=== PATIENT | male | born 1950 | race Caucasian/White ===

== ENCOUNTER 2019-07-23 08:53 | Outpatient (CLI) | payer MEDICARE, SELFPAY ==
--- NOTE | 2019-07-23 10:20 | ONCRAD EPV_ITS ---
Radiation Oncology Established Patient Visit Patient: Dante MR#: [id number] : 1950> Age: 68> Sex: Male> Dictated by: Dr. Malachi Mendoza Date of Service: 07/23/2019 Referring Physician(s) : Dr. Dallin Oreilly Diagnosis: C61 - Malignant neoplasm of prostate, Diagnosed 07/03/2016 (Active) Stage X, T2c, N0, M0 Radiotherapy to Date: Course: C1 Treatment Site: PELVIS PTV45 Ref. ID: PELVIS PTV 45 Energy: 6X Dose/Fx (cGy): 180 #Fx: 25 / 25 Dose Correction (cGy): 0 Total Dose (cGy): 4,500 Start Date: 10/15/2016 End Date: 11/23/2016 Elapsed Days: 39 Course: C1 Treatment Site: PELVIS PTV54 Ref. ID: PELVIS [id number] Energy: 6X Dose/Fx (cGy): 180 #Fx: 5 / 5 Dose Correction (cGy): 0 Total Dose (cGy): 900 Start Date: 11/24/2016 End Date: 11/29/2016 Elapsed Days: 5 Course: C1 Treatment Site: PELVIS [id number] Ref. ID: PELVIS [id number] Energy: 6X Dose/Fx (cGy): 200 #Fx: 12 / 12 Dose Correction (cGy): 0 Total Dose (cGy): 2,400 Start Date: 11/30/2016 End Date: 12/18/2016 Elapsed Days: 18 Chief Complaint / History of Present Illness: The patient is a 67 year old gentleman diagnosed with T2c, N0, M0 adenocarcinoma of the prostate [place] score 4+3, PSA 12.6ng/ml, intermediate risk disease s/p radiotherapy in combination with ADT. The patient comes in for a followup. He is doing well overall. He has completed ADT more than 6 months ago. He notes mild fatigue and nocturia x 1-3 but denies hot flash, dysuria, urgency, frequency, incontinence, weak stream, nocturia, hematuria, diarrhea, rectal irritation or bleeding. His recent PSA was < 0.04 ng/ ml on 06/11/2018, in 08/2018 and on 03/19/2019. I instructed patient to discontinue Megace since he is not having hot flash anymore. Current Medications: Aspirin Adult Low Dose, cardura, ipratropium-Albuterol, potassium, proventil HFA, singulair. Allergies: Codeine Sulfate. Current Complaints / Review of Systems: Constitutional - Complains of mild fatigue. Denies lack of appetite, fever and night sweats. Eyes - Denies blurred vision. ENMT - Denies dysphagia, ear pain, mouth dryness, stomatitis and altered taste. Neck - Denies neck pain. Integumentary - Denies rash. Cardiovascular - Denies arrhythmias and chest pain. Respiratory - Complains of a mild cough that happens occasionally. Complains of chronic dyspnea. Complains of wheezing. Gastrointestinal - Complains of heartburn / dyspepsia. Denies abdominal pain, constipation, diarrhea, melena / GI bleeding, nausea and vomiting. Genitourinary (M) - Complains of nocturia gets up about 2 to 3 times per night. Denies dysuria, frequency, incontinence and urgency. Musculoskeletal - Denies bone pain, joint pain and muscle weakness. Neurologic - Denies dizziness, abnormal gait and headaches. Endocrine - Denies diabetes and thyroid disease. Hematologic/Lymphatic - Denies tender or enlarged lymph nodes.. Vital Signs: Performed on 07/23/2019 9:24 AM BMI - 21.116 kg/m2, Height - 71.00 in, Weight - 151.4 lbs, Temperature - 98.1 f, Pulse - 79, Respiration - 20, O2 Sat - 95 % (low), Pain - 0 and BP - 114/ 70 mm(hg). Physical Exam: General: Alert and oriented x 3. No acute distress. HEENT: Normocephalic, atraumatic. Extraocular Movements Intact: Pupils Equal, Round, Reactive to Light and Accommodation: Sclerae anicteric. Oral cavity is clear without lesions, masses or ulcers. NECK: Supple without supraclavicular or jugular lymphadenopathy. LUNGS: Clear to auscultation bilaterally without rales, rhonchi or wheeze. HEART: Regular rate and rhythm, normal S1 and S2 without murmur, gallop or rub. MUSCULOSKELETAL: No tenderness or percussion pain over the axial skeleton, scapulae or pelvis. ABDOMEN: Soft, nontender, nondistended without masses or organomegaly. Bowel sounds are present. EXTREMITIES: No peripheral edema is identified. Limited motor and sensory examination are grossly intact and symmetric bilaterally. NEUROLOGIC: Cranial nerves II ???XII are grossly intact. Normal sensation, strength 5/5 in all extremities, normal gait, no ataxia. Performance Status: 0 - Fully active, able to carry on all predisease activities without restrictions. (ECOG) Lab: PSA < 0.04 ng/ml on 03/19/2019 Pathology: adenocarcinoma of prostate Impression/plan: There is no clinical evidence of recurrent prostate cancer and and no evidence of late radiation toxicities. The patient will continue to follow-up with Dr. Oreilly and recheck PSA regularly. He will follow up with me in 6 months. He was instructed to contact us earlier if he has any questions or experiences any issues such as persistent rectal bleeding/irritation. Signed by: 07/23/2019 10:19:48 AM <<Signature on File>> CPT Code: CPT Code: Signed By: Dr. Malachi Mendoza, 07/23/2019 10:19:49 AM <<Signature on File>>
== END 2019-07-23 08:54 | disposition home or self-care (01) ==
LOC: ONCMED 08:53
PROVIDERS: Family Provider Physician Assistant; Visit Provider Radiology Radiation Oncology
DX: Z08 Encounter for follow-up examination after completed treatment for malignant neoplasm (principal); Z85.46 Personal history of malignant neoplasm of prostate; R35.1 Nocturia; Z79.82 Long term (current) use of aspirin; Z92.3 Personal history of irradiation; Z92.23 Personal history of estrogen therapy
CPT/HCPCS: 99213

== ENCOUNTER → 2019-08-20 14:48 | Outpatient (BNVA) | payer MEDICARE, SELFPAY | PROVIDERS: Family Provider Physician Assistant; Visit Provider Nurse Practitioner Family | DX: R05 Cough (principal); J40 Bronchitis, not specified as acute or chronic | CPT/HCPCS: 87804 ==

== ENCOUNTER → 2019-09-17 08:39 | Outpatient (BNVA) | payer MEDICARE, SELFPAY | PROVIDERS: Family Provider Physician Assistant; Visit Provider Urology | DX: R97.20 Elevated prostate specific antigen [PSA] (principal); E29.1 Testicular hypofunction; C61 Malignant neoplasm of prostate | CPT/HCPCS: 81001 ==

== ENCOUNTER 2019-12-24 08:59 | Outpatient (CLI) | payer MEDICARE, SELFPAY ==
--- NOTE | 2019-12-25 09:55 | ONCRAD EPV_ITS ---
Radiation Oncology Established Patient Visit Patient: Dante MR#: [id number] : 1950 Age: 69 Sex: Male Dictated by: Dr. Gage Fregoso Date of Service: 12/24/2019 Referring Physician(s) : Dr. Dallin Oreilly Diagnosis: C61 - Malignant neoplasm of prostate, Diagnosed 07/03/2016 (Active) Stage X, T2c, N0, M0 Radiotherapy to Date: Course: C1, Treatment Site: PELVIS PTV45, Ref. ID: PELVIS PTV 45, Energy: 6X, Dose/Fx (cGy): 180, #Fx: 25 / 25, Dose Correction (cGy): 0, Total Dose (cGy): 4,500, Start Date: 10/15/2016, End Date: 11/23/2016, Elapsed Days: 39 Treatment Site: PELVIS PTV54, Ref. ID: PELVIS [id number], Energy: 6X, Dose/Fx (cGy): 180, #Fx: 5 / 5, Dose Correction (cGy): 0, Total Dose (cGy): 900, Start Date: 11/24/2016, End Date: 11/29/2016, Elapsed Days: 5 Boost Site: PELVIS PTV78, Ref. ID: [id number] [id number], Energy: 6X, Dose/Fx (cGy): 200, #Fx: / , Dose Correction (cGy): 0, Total Dose (cGy): 2,400, Start Date: 11/30/2016, End Date: 12/18/2016, Elapsed Days: 18 Chief Complaint / History of Present Illness: The patient is a 69 year old male with large volume, unfavorable intermediate risk prostate cancer, T2c N0M0, GG 4+3, PreTx PSA 12.6 ng/mL, 05/04 cores positive, PreTx AUA score 10, & + erectile dysfunction prior to radiation therapy. He was treated with 6 months of ADT (completed 2016) and 78 Gy as described above (completed 12/18/2016). He is seen today in follow up and his PSA is <0.04 ng/mL (09/17/2019). He is seeing his Urologist, Dr Oreilly, every 6 months, and with Dr Oreilly he receives biochemical surveillance every six months along with a digital rectal exam. On today???s visit, the patient reports zero nocturia after reducing his coffee consumption from 3 ???pots??? of coffee to 1.5 pots of coffee per day. He also reports no bloody stools, no diarrhea, and no dysuria. He reports no erectile function and he is not able to tolerate phosphodiesterase type 5 inhibition due to abnormal blood pressure effects and tachycardia. He does however report the recurrence of hot flashes. While he was undergoing treatment with ADT, his hot flashes were well managed with low dose megace (20 mg/day PO). Due to the recurrence of hot flashes, which he now describes as occurring 2-12 times per day, is affecting his quality of life. He requested a refill of this prescription which was initially provided by his treating radiation oncologist. Current Medications: Aspirin Adult Low Dose, cardura, ipratropium-Albuterol, potassium, proventil HFA, singulair. Allergies: Codeine Sulfate. Current Complaints / Review of Systems: Constitutional - Complains of mild fatigue. Denies lack of appetite, fever, night sweats but having hot flashes that has started back up after 6 months of not having them. and change in weight. Eyes - Denies blurred vision. Has no vision in the right eye. ENMT - Denies dysphagia, ear pain, mouth dryness, stomatitis and altered taste. Neck - Denies neck pain. Integumentary - Denies rash. Cardiovascular - Denies arrhythmias, chest pain and edema. Respiratory - Complains of chronic dyspnea associated with rest or normal activity. Denies cough and wheezing. Gastrointestinal - Denies abdominal pain, constipation, diarrhea, heartburn / dyspepsia, hemorrhoids, melena / GI bleeding, nausea and vomiting. Genitourinary (M) - Complains of urgency occasionally. Denies dysuria, frequency and nocturia. Musculoskeletal - Complains of generalized muscle weakness. Denies bone pain and joint pain. Neurologic - Complains of intermittent dizziness that occurs upon sitting to standing. Denies abnormal gait and headaches. Endocrine - Denies diabetes and thyroid disease. Hematologic/Lymphatic - Denies tender or enlarged lymph nodes.. Vital Signs: Performed on 12/24/2019 9:35 AM BMI - 20.53 kg/m2, Height - 71.00 in, Weight - 147.2 lbs, Temperature - 97.4 f, Pulse - 69, Respiration - 181, O2 Sat - 96 %, Pain - 0 and BP - 102/ 59 mm(hg)(/low). Physical Exam: General: Alert and oriented x 3. No acute distress. HEENT: Normocephalic, atraumatic. Extraocular Movements Intact: Pupils Equal, Round, Reactive to Light and Accommodation: Sclerae anicteric. NECK: Supple without supraclavicular or jugular lymphadenopathy. LUNGS: Clear to auscultation bilaterally without rales, rhonchi or wheeze. HEART: Regular rate and rhythm, normal S1 and S2 without murmur, gallop or rub. EXTREMITIES: No peripheral edema is identified. Limited motor and sensory examination are grossly intact and symmetric bilaterally. NEUROLOGIC: Cranial nerves II ???XII are grossly intact. Performance Status: 1 - No physically strenuous activity, but ambulatory and able to carry out light or sedentary work (e.g. office work, light house work). (ECOG) Lab: None pending. Pathology: Primary, c61 - malignant neoplasm of prostate, Diagnosed 07/03/2016 (active) stage x, t2c, n0, m0. Imaging: See HPI Impression: The patient is a 69 year old male with large volume, unfavorable intermediate risk prostate cancer, T2c N0M0, GG 4+3, PreTx PSA 12.6 ng/mL, who is status post 6 months of ADT (completed 2016) and definitive radiotherapy to 78 Gy (completed 12/18/2016). He has no current evidence of biochemical recurrence, his most recent PSA was <0.04 ng/mL (08/2019), and he has no current significant side effects from treatment. With regard to his hot flashes of uncertain etiology, a Megace prescription was refilled with verbal instructions given to the patient to only take 20 mg of Megace per day and not 20 mg BID. I discussed this with an in-house medical oncologist, Dr Penn, who thought that the prescribed dose was very safe to administer intermediate. He was instructed to continue Q6 months follow up with his Urologist, Dr Oreilly, along with PSA surveillance and continue to ask Dr Oreilly to copy us on notes and lab data. He was instructed to follow up with us in one year, or sooner if new symptoms develop. The patient was advised that the safe amount of coffee to drink per day is 4 cups/day. Consuming 1.5 ???pots??? of coffee per day is considered unsafe and it is a known diuretic. Perhaps this contributes to his dizziness when standing. The patient shared that he would not change his caffeine consumption despite medical advice to the contrary. CC: Dr Oreilly Signed by: 12/25/2019 9:53:23 AM <<Signature on File>> Time spent with patient: CPT Code: CPT Code:
== END 2019-12-24 09:00 | disposition home or self-care (01) ==
LOC: ONCMED 09:04
PROVIDERS: Visit Provider Radiology Radiation Oncology
DX: C61 Malignant neoplasm of prostate (principal); F41.9 Anxiety disorder, unspecified; J44.9 Chronic obstructive pulmonary disease, unspecified; Z79.899 Other long term (current) drug therapy; Z79.818 Long term (current) use of other agents affecting estrogen receptors and estrogen levels
CPT/HCPCS: 99213

== ENCOUNTER → 2020-09-28 09:10 | Outpatient (BNVA) | payer MEDICARE, SELFPAY | PROVIDERS: Visit Provider Urology | DX: E29.1 Testicular hypofunction (principal); N39.9 Disorder of urinary system, unspecified; C61 Malignant neoplasm of prostate | CPT/HCPCS: 81003; 84403; G0103 ==

== ENCOUNTER → 2021-09-28 09:17 | Outpatient (BNVA) | payer MEDICARE, SELFPAY | PROVIDERS: Visit Provider Urology | DX: C61 Malignant neoplasm of prostate (principal); R79.89 Other specified abnormal findings of blood chemistry; R97.20 Elevated prostate specific antigen [PSA]; E29.1 Testicular hypofunction | CPT/HCPCS: 81003; 84153; 84403 ==

== ENCOUNTER 2022-09-20 11:49 | Outpatient (CLI) | payer MEDICARE, SELFPAY ==
[2022-09-20 13:28] LABS: PSA Screen - Urology 1.69 ng/mL (0-4)
[2022-09-20 13:29] LABS: Testosterone Total - Urology 197 ng/mL (300-1000)
== END 2022-09-20 11:50 | disposition home or self-care (01) ==
LOC: LAB 11:57
PROVIDERS: PCP Urology; Visit Provider Urology
DX: Z12.5 Encounter for screening for malignant neoplasm of prostate (principal); R79.89 Other specified abnormal findings of blood chemistry
CPT/HCPCS: 36415; 84403; G0103

== ENCOUNTER → 2022-09-27 09:12 | Outpatient (BNVA) | payer MEDICARE, SELFPAY | PROVIDERS: PCP Urology; Visit Provider Urology | DX: C61 Malignant neoplasm of prostate (principal); Z12.5 Encounter for screening for malignant neoplasm of prostate; R79.89 Other specified abnormal findings of blood chemistry | CPT/HCPCS: 81003; 99213 ==

== ENCOUNTER → 2022-11-21 09:12 | Outpatient (BNVA) | payer MEDICARE, SELFPAY | PROVIDERS: PCP Urology; Visit Provider Urology | DX: R97.20 Elevated prostate specific antigen [PSA] (principal) | CPT/HCPCS: 84153 ==

== ENCOUNTER → 2022-11-28 13:01 | Outpatient (BNVA) | payer MEDICARE, SELFPAY | PROVIDERS: PCP Urology; Visit Provider Urology | DX: C61 Malignant neoplasm of prostate (principal); R97.20 Elevated prostate specific antigen [PSA]; E29.1 Testicular hypofunction | CPT/HCPCS: 81003; 99213 ==

== ENCOUNTER 2022-12-12 14:32 | Oncology outpatient (recurring) (ONCR) | payer MEDICARE, SELFPAY ==
[2022-12-12 16:23] LABS: Basophils % 0.6 %; Eosinophils # 0.1 10^3/uL (0.0-0.8); Eosinophils % 2.5 %; Hematocrit 39.1 % (42.0-52.0); Hemoglobin 12.6 g/dL (11.7-16.6); Lymphocytes # 0.8 10^3/uL (0.8-4.8); Mean Corpuscular HGB Conc 32.2 g/dL (30.0-36.0); Mean Corpuscular Hemoglobin 30.1 pg (28.0-34.0); Mean Corpuscular Volume 93.3 fl (80-94); Mean Platelet Volume 10.3 fL (7.4-10.4); Monocytes # 0.2 10^3/uL (0.2-0.9); Monocytes % 6.1 %; Neutrophils # 2.44 10^3/uL (1.8-7.7); Neutrophils % 67.5 %; Nucleated Red Blood Cells % 0 %; Platelet Count 165 10^3/cmm (130-400); Red Blood Count 4.19 10^6/uL (4.1-5.3); Red Cell Distribution Width 13.6 % (12.1-15.1); White Blood Count 3.6 10^3/uL (4.0-10.0)
[2022-12-12 16:50] LABS: Alanine Aminotransferase 18 U/L (0-41); Albumin Level 3.9 g/dL (3.5-5.2); Alkaline Phosphatase 72 U/L (40-130); Anion Gap 13.6 (5-19); Aspartate Amino Transferase 19 U/L (0-40); Blood Urea Nitrogen 25 mg/dL (8-23); Carbon Dioxide 24 mmol/L (22-29); Chloride 105 mmol/L (98-107); Globulin 2.4 g/dL (1.3-4.6); Glucose 90 mg/dL (65-115); Osmolality Calculated 290 mOsm/kg (285-295); Potassium 4.6 mmol/L (3.5-5.1); Sodium 138 mmol/L (136-145); Testosterone Total 182.2 ng/dL (193-740); Total Bilirubin 0.2 mg/dL (0.15-1.2); Total Protein 6.3 g/dL (6.6-8.7)
== END 2022-12-21 23:59 | disposition home or self-care (01) ==
PROVIDERS: PCP Nurse Practitioner Family; Visit Provider Internal Medicine Hematology & Oncology
DX: C61 Malignant neoplasm of prostate (principal)
CPT/HCPCS: 36415; 80053; 84153; 84403; 85025; 99204

== ENCOUNTER 2023-01-14 08:30 | Oncology outpatient (recurring) (ONCR) | payer MEDICARE, SELFPAY ==
[2023-01-10 12:10] VITALS: BP 88/50; PULSE 76; RESP 18; TEMP 36.3; O2SAT 96
[2023-01-10 13:44] LABS: Alanine Aminotransferase 15 U/L (0-41); Albumin Level 3.8 g/dL (3.5-5.2); Alkaline Phosphatase 65 U/L (40-130); Anion Gap 15.4 (5-19); Aspartate Amino Transferase 19 U/L (0-40); Blood Urea Nitrogen 18 mg/dL (8-23); Calcium 9.1 mg/dL (8.5-10.5); Carbon Dioxide 24 mmol/L (22-29); Chloride 105 mmol/L (98-107); Globulin 2.2 g/dL (1.3-4.6); Glucose 81 mg/dL (65-115); Osmolality Calculated 291 mOsm/kg (285-295); Potassium 4.4 mmol/L (3.5-5.1); Sodium 140 mmol/L (136-145); Testosterone Total 137.2 ng/dL (193-740); Total Bilirubin 0.3 mg/dL (0.15-1.2)
== END 2023-01-21 23:59 | disposition home or self-care (01) ==
PROVIDERS: PCP Nurse Practitioner Family; Visit Provider Internal Medicine Hematology & Oncology
DX: Z53.9 Procedure and treatment not carried out, unspecified reason (principal)
CPT/HCPCS: 36415; 80053; 84153; 84403; 99214

== ENCOUNTER 2023-02-12 11:36 | Oncology outpatient (recurring) (ONCR) | payer MEDICARE, SELFPAY ==
[2023-02-12 11:46] VITALS: BP 100/66; PULSE 68; RESP 18; TEMP 36.6; O2SAT 96
[2023-02-12 12:24] LABS: Testosterone Total 121.4 ng/dL (193-740)
== END 2023-02-21 23:59 | disposition home or self-care (01) ==
PROVIDERS: PCP Nurse Practitioner Family; Visit Provider Internal Medicine Medical Oncology
DX: C61 Malignant neoplasm of prostate (principal); Z79.899 Other long term (current) drug therapy
CPT/HCPCS: 36415; 84153; 84403; 99214

== ENCOUNTER 2023-05-09 08:03 | Oncology outpatient (recurring) (ONCR) | payer MEDICARE, SELFPAY ==
[2023-05-09 09:41] LABS: Basophils % 0.3 %; Eosinophils # 0.1 10^3/uL (0.0-0.8); Eosinophils % 2.5 %; Hematocrit 37.9 % (37-53); Lymphocytes # 0.8 10^3/uL (0.8-4.8); Mean Corpuscular HGB Conc 31.7 g/dL (30-55); Mean Corpuscular Hemoglobin 29.9 pg (27-33); Mean Corpuscular Volume 94.3 fl (82-101); Mean Platelet Volume 10.8 fL (7.4-10.4); Monocytes # 0.3 10^3/uL (0.2-0.9); Monocytes % 8.7 %; Neutrophils # 2.41 10^3/uL (1.8-7.7); Neutrophils % 67.5 %; Nucleated Red Blood Cells % 0 %; Platelet Count 158 10^3/cmm (157-399); Red Blood Count 4.02 10^6/uL (3.85-5.65); Red Cell Distribution Width 13.3 % (12.1-15.1); White Blood Count 3.57 10^3/uL (3.29-11.43)
[2023-05-09 10:15] LABS: Alanine Aminotransferase 16 U/L (0-41); Albumin Level 3.8 g/dL (3.5-5.2); Alkaline Phosphatase 72 U/L (40-130); Anion Gap 13.2 (5-19); Aspartate Amino Transferase 20 U/L (0-40); Blood Urea Nitrogen 20 mg/dL (8-23); Carbon Dioxide 27 mmol/L (22-29); Chloride 106 mmol/L (98-107); Globulin 2.5 g/dL (1.3-4.6); Glucose 97 mg/dL (65-115); Osmolality Calculated 297 mOsm/kg (285-295); Potassium 4.2 mmol/L (3.5-5.1); Sodium 142 mmol/L (136-145); Total Bilirubin 0.2 mg/dL (0.15-1.2); Total Protein 6.3 g/dL (6.6-8.7)
== END 2023-05-23 23:59 | disposition home or self-care (01) ==
PROVIDERS: PCP Nurse Practitioner Family; Visit Provider Internal Medicine Medical Oncology
DX: C61 Malignant neoplasm of prostate (principal); J44.9 Chronic obstructive pulmonary disease, unspecified; Z79.899 Other long term (current) drug therapy
CPT/HCPCS: 36415; 80053; 84153; 84403; 85025; 99214